=== PATIENT | male | born 1975 ===

== ENCOUNTER 2017-02-09 19:00 | Emergency (ER) | payer OTHER ==
[~2017-02-09] VITALS: Ht 175.3 cm; Wt 77.3 kg
[2017-02-09 19:10] VITALS: BP 118/79; RESP 16; O2SAT 97
--- NOTE | 2017-02-09 21:07 | ED.REPORT ---
HPI-URI / Cough / Cold Date of Service Feb 09, 2017 ED Provider: Annika Chavez MD Patient is a 41 year old male who presents to the ED complaining of a sore throat onset 2 days ago. Patient states that his throat has become more painful since onset and that his throat feels swollen. He reports associated subjective fever and chills. Patient is afebrile in the ED. He reports difficulty breathing and pain with swallowing. He reports drooling and that his voice is hoarse. Patient also reports nasal congestion and runny nose, but denies cough. Nursing Notes Stated Complaint: THROAT INFECTION Chief Complaint: ENT & Mouth Nursing Notes Reviewed: Yes Allergies: Uncoded Allergies: PENICILLIN (Allergy, Intermediate, 02/09/17) Scheduled Cephalexin (Keflex) 500 Mg Capsule 500 MG PO QID General Time Seen by MD: 21:02 Chief Complaint Sore throat Hx Obtained From: Patient Arrived By: Walk-in Onset Occurred: 2 days ago Symptom Duration: Since onset Location: : Pharynx Quality: Painful Severity: Current: Moderate Severity: Maximum: Moderate Recent Healthcare: No recent doctor visit, No recent hospitalization Similar Sx Previous: No Past Medical History Past Medical History none reported Past Surgical History none reported Smoking History Unknown if Ever Smoker Social History Other Social History: Good social support, Local resident Ambulatory Status Independent Review of Systems Review of Systems Note: + drooling Constitutional: Reports: Chills, Fever (subjective) Ears / Nose / Throat: Reports: Nasal congestion, Sore throat, Throat pain, Voice change Respiratory: Denies: Non-productive cough Allergy / Immune: Reports: Rhinorrhea Complete sys rev & neg: except as marked. Physical Exam Initial Vital Signs Vital Signs (First) Date Time Temp Pulse Resp B/P Pulse Ox O2 Delivery O2 Flow Rate FiO2 02/09/17 19:10 36.3 77 16 118/79 97 Room Air Initial VS: Reviewed Abdomen / GI: Soft, Non-tender Extremities: Vascular intact, Neuro intact, No swelling, No tenderness Skin: Warm, Dry, No cyanosis Neurologic: Alert, Oriented, Nonfocal Psychiatric: Mood/affect normal, Behavior normal, Normal thought content General/Constitutional: Awake, Alert, No acute distress ENT: Airway patent Pharynx / Tonsils / Uvula: Positive: Pharyngeal erythema, Tonsillar erythema R , Tonsillar exudate R, Negative: Peritonsil abscess L, Peritonsil abscess R, Tonsillar swelling L, Tonsillar swelling R uvula at midline controlling secretions Respiratory / Chest: Breath sounds NL, Breath sounds = bilat, No respiratory distress, No rales, No rhonchi, No wheezing Head / Eyes: Normocephalic, PERRL, Conjunctiva NL Neck: Supple shotty adenopathy Cardiovascular: Heart rate NL, Regular rhythm, Heart sounds NL, No murmurs Skin: Color NL, No rash, Warm, Dry Interpretation & Diagnostics Interpretation & Diagnostics: Rapid Bedside Strep: Negative Re-Eval/Medical Decision Med Decision/Clinical Course -year-old male with no past medical history here with 2 days of sore throat. Differential diagnosis includes but is not limited to viral versus streptococcal pharyngitis versus peritonsillar abscess versus upper respiratory infection. Exam is most consistent with streptococcal pharyngitis as patient has tender lymphadenopathy, exudate,, and erythematous and edematous throat. He has no airway compromise at this time. He was given Keflex in the emergency department along with Decadron. He was discharged with a prescription for Keflex and very strict return precautions. A culture was obtained prior to discharge. He is aware and amenable to discharge at this time. Re-Evaluation/Progress : Time of Eval: 21:03 Patient Status: Condition improved Re-Evaluation/Progress Note: Patient understands and agrees with the plan to be discharged home. Discharge instructions and follow-up discussed. All questions were addressed. Return to the ED warnings given. Counseled Regarding: Diagnosis, Need for follow-up, When/why to return to ED Discharge & Departure Impression: Primary Impression: Pharyngitis Pharyngitis/tonsillitis etiology: unspecified etiology Qualified Code: J02.9 - Acute pharyngitis, unspecified Disposition: Home Discharge Condition All VS Reviewed: Yes Condition: Stable Patient Instructions: Pharyngitis (ED) Additional Instructions: You have been started on Keflex for your throat infection. Take this prescription as directed. You were given steroids in the emergency department, which should help with the pain and swelling. You can take Tylenol or Ibuprofen as needed for pain. Follow-up with your doctor early next week. You can follow-up at the [facility] if you do not have a primary care physician. Return to the Emergency Department if you experience a fever, shortness of breath, difficulty swallowing or any other concerning symptoms. Referrals: [facility] Scribe Attestation Portions of this note were transcribed by Scarlett Swartz. I, Dr. Chavez personally performed the history, physical exam and medical decision-making; I reviewed and confirmed the accuracy of the information in the transcribed note. Signed by: Hillary Ryan, 02/09/2017 2213 Annika Chavez MD Feb 09, 2017 21:07 Scarlett Swartz Feb 09, 2017 21:13
[2017-02-09] MEDS ORDERED: Dexamethasone 20 mg/2 mL Oral Solution PO ONE (21:15)
[2017-02-09] MEDS ORDERED: CEPH-512 PO (21:21)
[2017-02-09 22:00] VITALS: BP 116/78; PULSE 65; RESP 16; O2SAT 98
== END 2017-02-09 22:26 | disposition home or self-care (01) ==
LOC: SED 19:00
DX: J02.9 Acute pharyngitis, unspecified (principal); R50.9 Fever, unspecified; R06.00 Dyspnea, unspecified; R09.81 Nasal congestion